=== PATIENT | male | born 1950 | race Caucasian/White ===

== ENCOUNTER 2020-05-28 11:52 | Observation (INO) | payer OTHER, BC ==
[2020-05-28] MEDS ORDERED: ALBUTEROL 2.5 MG/3 ML NEB SOL ONE (12:35)
[2020-05-28] MEDS ORDERED: METHYLPREDNISOLONE 125 MG INJ ONE (12:35)
[2020-05-28] MEDS ORDERED: IPRATROPIUM BROM 0.5MG/2.5ML ONE (12:35)
--- NOTE | 2020-05-28 12:43 | RAD REPORT ---
EXAM DESCRIPTION: RAD - Chest Single View - 05/28/2020 12:28 pm CLINICAL HISTORY: Congestion;Dyspnea Chest pain. COMPARISON: Chest Pa And Lat (2 Views) dated 04/29/2019; ABDOMEN 1 VIEW KUB dated 05/25/2015 FINDINGS: Portable technique limits examination quality. Extensive patchy opacities are present in both lungs, greatest in the right lower lobe, compatible wi th multifocal pneumonia pattern. Small bilateral pleural effusions. The heart is mildly enlarged in s ize. Sternotomy wires present.
[2020-05-28 12:52] LABS: Protime INR 1.33
[2020-05-28 12:57] LABS: Absolute Lymphocytes (CBC) 0.1 K/uL (0.7-4.9); Basophils % 0.2 % (0-1.3); Hematocrit 26.1 % (39.6-49.0); Lymphocytes % 0.8 % (15.3-44.8); MPV 8.9 fL (7.6-11.3); RBC Red Blood Cell Count 2.89 M/uL (4.33-5.43)
[2020-05-28 13:09] LABS: Albumin 2.7 g/dL (3.4-5.0); Bilirubin Direct 0.1 mg/dL (0-0.2); Bilirubin Total 0.4 mg/dL (0.2-1.0); Potassium 3.7 mmol/L (3.5-5.1); Protein, Total 7.2 g/dL (6.4-8.2); Troponin (Emerg Dept Use Only) 0.25 ng/mL (0.0-0.045)
[2020-05-28 13:26] LABS: Anisocytosis 1+; Blood Morphology Comment NOTED (NOT SEEN); Hypochromasia 2+; Platelet Estimate ADEQ; Platelets, Giant FEW
--- NOTE | 2020-05-28 13:35 | EDPHYS ---
Physician Documentation [facility] Name: Arya Jurado Age: 69 yrs Sex: Male : 1950 Arrival Date: 05/28/2020 Time: 11:55 Bed 3 Private MD: ED Physician Abimael Kaur HPI: 05/28 12:03 This 69 yrs old Male presents to ER via EMS with complaints of Shortness Of kdr Breath. 12:03 The patient has shortness of breath at rest, with light activity. Onset: The kdr symptoms/episode began/occurred gradually, 10 day(s) ago. Duration: The symptoms are continuous, and are steadily getting worse. The patient's shortness of breath is aggravated by coughing, exertion, light activity, talking. Associated signs and symptoms: The patient has no apparent associated signs or symptoms. Severity of symptoms: At their worst the symptoms were moderate just prior to arrival, today, in the emergency department the symptoms are unchanged. The patient has not experienced similar symptoms in the past. The patient has not recently seen a physician. The patient states that he had brown sputum which has now cleared. 12:08 Initial RA sat 66%. He is not on home oxygen but was to be evaluated by Dr. Josias cummings for need. Historical: - Allergies: 12:09 No Known Allergies; bp - Home Meds: 12:09 albuterol sulfate 90 mcg/actuation Inhl HFAA 2 puffs every 4-6 hours [Active]; bp clopidogrel 75 mg oral tab 1 tab once daily [Active]; atorvastatin 80 mg oral tab 1 tab once daily [Active]; Bystolic 10 mg oral tab 1 tab once daily [Active]; losartan 100 mg oral tab 1 tab once daily [Active]; levothyroxine 50 mcg tab 1 tab once daily [Active]; furosemide 20 mg Oral tab 1 tab 2 times per day [Active]; prednisone 10 mg Oral tab once daily [Active]; - PMHx: 12:09 Hypertension; High Cholesterol; Cancer; Myocardial infarction; bp - PSHx: 12:09 CABG; bp - Immunization history:: Adult Immunizations unknown. - Social history:: Smoking status: Patient reports the use of cigarette tobacco products, smokes one-half pack cigarettes per day. ROS: 12:03 Constitutional: Negative for fever, chills, and weight loss, Eyes: Negative for injury, kdr pain, redness, and discharge, ENT: Negative for injury, pain, and discharge, Neck: Negative for injury, pain, and swelling, Cardiovascular: Negative for chest pain, palpitations, and edema, Abdomen/GI: Negative for abdominal pain, nausea, vomiting, diarrhea, and constipation, Back: Negative for injury and pain, : Negative for injury, bleeding, discharge, and swelling, MS/Extremity: Negative for injury and deformity, Skin: Negative for injury, rash, and discoloration, Neuro: Negative for headache, weakness, numbness, tingling, and seizure activity. Psych: Negative for depression, anxiety, suicide ideation, homicidal ideation, and hallucinations, Allergy/Immunology: Negative for hives, rash, and allergies, Endocrine: Negative for neck swelling, polydipsia, polyuria, polyphagia, and marked weight changes, Hematologic/Lymphatic: Negative for swollen nodes, abnormal bleeding, and unusual bruising. 12:03 Respiratory: Positive for cough, with clear sputum, dyspnea on exertion, shortness of breath, wheezing, inspiratory, expiratory, Negative for hemoptysis, orthopnea, pleurisy. Exam: 12:03 Constitutional: This is a well developed, well nourished patient who is awake, alert, kdr and in no acute distress. Head/Face: Normocephalic, atraumatic. Eyes: Pupils equal round and reactive to light, extra-ocular motions intact. Lids and lashes normal. Conjunctiva and sclera are non-icteric and not injected. Cornea within normal limits. Periorbital areas with no swelling, redness, or edema. Neck: Trachea midline, no thyromegaly or masses palpated, and no cervical lymphadenopathy. Supple, full range of motion without nuchal rigidity, or vertebral point tenderness. No Meningismus. Chest/axilla: Normal chest wall appearance and motion. Nontender with no deformity. No lesions are appreciated. Cardiovascular: Regular rate and rhythm with a normal S1 and S2. No gallops, murmurs, or rubs. Normal PMI, no JVD. No pulse deficits. Abdomen/GI: Soft, non-tender, with normal bowel sounds. No distension or tympany. No guarding or rebound. No evidence of tenderness throughout. Back: No spinal tenderness. No costovertebral tenderness. Full range of motion. Skin: Warm, dry with poor turgor. Poor color with no rashes, scattered lesions, and no evidence of cellulitis. MS/ Extremity: Pulses equal, no cyanosis. Neurovascular intact. Full, normal range of motion. Neuro: Awake and alert, GCS 15, oriented to person, place, time, and situation. Cranial nerves II-XII grossly intact. Motor strength 5/5 in all extremities. Sensory grossly intact. Cerebellar exam normal. Normal gait. Psych: Awake, alert, with orientation to person, place and time. Behavior, mood, and affect are within normal limits. 12:03 Respiratory: mild respiratory distress is noted, Respirations: labored breathing, that is mild, Breath sounds: wheezing: inspiratory expiratory that is moderate, is scattered, is heard diffusely. 12:28 ECG was reviewed by the Attending Physician. kdr Vital Signs: 11:55 Pulse Ox 66% on R/A; bp 12:00 BP 183 / 100; Pulse 104; Resp 29; Temp 97.9; jl7 12:00 BP 183 / 100; Pulse 104; Resp 19; Pulse Ox 100% ; bp 12:51 BP 157 / 78; Pulse 99; Resp 20; Pulse Ox 100% on Nebulizer Mask; 5 13:31 Weight 51.71 kg; Height 5 ft. 6 in. (167.64 cm); 7 14:04 BP 161 / 81; Pulse 103; Resp 19; Pulse Ox 100% on 40% Venturi mask; 7 15:06 BP 171 / 87; Pulse 101; Resp 18; Pulse Ox 95% ; bp 16:00 BP 174 / 84; Pulse 100; Resp 24; Pulse Ox 96% ; bp 17:00 BP 162 / 95; Pulse 97; Resp 15; Pulse Ox 97% on 40% Venturi mask; jl7 18:09 BP 138 / 79; Pulse 95; Resp 22; Pulse Ox 94% on 40% Venturi mask; 7 19:00 BP 136 / 80; Pulse 91; Resp 19; Pulse Ox 94% on 40% Venturi mask; rv 20:07 BP 113 / 67; Pulse 89; Resp 18; Temp 98; Pulse Ox 95% on 40% Venturi mask; rv 13:31 Body Mass Index 18.40 (51.71 kg, 167.64 cm) [facility] MDM: 13:34 Patient medically screened. kdr 16:40 Data reviewed: vital signs, nurses notes, lab test result(s), EKG, radiologic studies. kdr Counseling: I had a detailed discussion with the patient and/or guardian regarding: the historical points, exam findings, and any diagnostic results supporting the discharge/admit diagnosis, lab results, radiology results, the need for further work-up and treatment in the hospital. 05/28 12:03 Order name: Amylase, Serum kdr 05/28 12:03 Order name: Basic Metabolic Panel kdr 05/28 12:03 Order name: Blood Culture Adult (2) kdr 05/28 12:03 Order name: CBC with Diff kdr 05/28 12:03 Order name: Ckmb kdr 05/28 12:03 Order name: CPK; Complete Time: 13:31 kdr 05/28 12:03 Order name: Lactate; Complete Time: 13:30 [facility] 05/28 12:03 Order name: LFT's; Complete Time: 13:30 kdr 05/28 12:03 Order name: Lipase; Complete Time: 13:30 [facility] 05/28 12:03 Order name: Procalcitonin; Complete Time: 13:30 [facility] 05/28 12:03 Order name: Protime (+inr); Complete Time: 13:30 kdr 05/28 12:03 Order name: Ptt, Activated; Complete Time: 13:31 kdr 05/28 12:03 Order name: Troponin (emerg Dept Use Only); Complete Time: 13:31 [facility] 05/28 12:03 Order name: Urine Microscopic Only kdr 05/28 12:03 Order name: Chest Single View XRAY; Complete Time: 13:31 [facility] 05/28 12:03 Order name: Amylase; Complete Time: 13:31 EDMS 05/28 12:03 Order name: Basic Metabolic Panel; Complete Time: 13:31 EDMS 05/28 12:03 Order name: Blood Culture EDMS 05/28 12:03 Order name: CBC with Automated Diff; Complete Time: 13:31 EDMS 05/28 12:03 Order name: CKMB Creatine Kinase MB; Complete Time: 13:31 EDMS 05/28 12:46 Order name: Glucose, Ancillary Testing; Complete Time: 13:31 EDMS 05/28 13:25 Order name: Manual Differential; Complete Time: 13:31 EDMS 05/28 14:08 Order name: Influenza Screen (A EDGA 05/28 14:11 Order name: SARS-COV-2 RT PCR EDGA 05/28 17:15 Order name: Lactate Sepsis 2 HR Follow-up [facility] 05/28 12:03 Order name: Accucheck; Complete Time: 12:17 kdr 05/28 12:03 Order name: Cardiac monitoring; Complete Time: 12:17 kdr 05/28 12:03 Order name: EKG - Nurse/Tech; Complete Time: 12:46 kdr 05/28 12:03 Order name: IV Saline Lock - Large Bore; Complete Time: 12:17 kdr 05/28 12:03 Order name: Labs collected and sent; Complete Time: 13:15 kdr 05/28 12:03 Order name: O2 Per Protocol; Complete Time: 12:17 kdr 05/28 12:03 Order name: O2 Sat Monitoring; Complete Time: 12:17 kdr EC:28 Rate is 101 beats/min. Rhythm is irregular, Sinus tachycardia with No ectopy, Right kdr bundle branch block. QRS [place] is Normal. OR interval is normal. QRS interval is normal. Clinical impression: NSR w/ Non-specific ST/T Changes and Sinus tachycardia. Administered Medications: 12:00 Drug: Albuterol - atroVENT (3:1) (2.5 mg - 0.5 mg) 3 ml Route: Nebulizer; bp 12:15 Follow up: Response: No adverse reaction jl7 12:30 Drug: SOLU-Medrol 125 mg Route: IVP; Site: right forearm; bp 14:03 Follow up: Response: No adverse reaction jl7 13:35 Drug: Rocephin - (cefTRIAXone) 1 grams Route: IVPB; Infused Over: 30 mins; Site: left jl7 forearm; 14:02 Follow up: Response: No adverse reaction; IV Status: Completed infusion jl7 13:35 Drug: NS 0.9% (30 ml/kg) 30 ml/kg Route: IV; Rate: bolus; Site: right antecubital; jl7 14:30 Follow up: Response: No adverse reaction; IV Status: Completed infusion; IV Intake: jl7 1551ml 13:55 Drug: vancoMYCIN 1 grams Route: IVPB; Infused Over: 2 hrs; Site: right antecubital; jl7 17:55 Follow up: Response: No adverse reaction; IV Status: Completed infusion jl7 Disposition: 05/28/20 13:34 Hospitalization ordered by Dave Lala for Inpatient Admission. Preliminary diagnosis are Pneumonia, unspecified organism, Sepsis, unspecified organism, Acute respiratory failure with hypoxia. - Bed requested for Telemetry/MedSurg (Inpatient). - Status is Inpatient Admission. rv - Condition is Fair. - Problem is new. - Symptoms have improved. Signatures: Dispatcher [employer] EDMS Abimael Kaur MD MD kdr Martinez, Eric em1 Sara Fung RN RN jl7 Huy Pham RN RN bp Ang Graff, MALISSA RN rv Corrections: (The following items were deleted from the chart) 13:28 12:03 CORONAVIRUS+MR.LAB.BRZ ordered. EDMS EDMS 14:09 13:33 Influenza Screen (A \T\ B)+BA.LAB.BRZ ordered. EDMS EDMS 14:10 13:33 CORONAVIRUS+MR.LAB.BRZ ordered. EDGA EDMS 18:38 13:34 Hospitalization Ordered by Dave Lala for Inpatient Admission. Preliminary em1 diagnosis is Pneumonia, unspecified organism; Sepsis, unspecified organism; Acute respiratory failure with hypoxia. Bed requested for Telemetry/MedSurg (Inpatient). Status is Inpatient Admission. Condition is Fair. Problem is new. Symptoms have improved. kdr 20:13 18:38 05/28/2020 13:34 Hospitalization Ordered by Dave Lala for Inpatient rv Admission. Preliminary diagnosis is Pneumonia, unspecified organism; Sepsis, unspecified organism; Acute respiratory failure with hypoxia. Bed requested for Telemetry/MedSurg (Inpatient). Status is Inpatient Admission. Condition is Fair. Problem is new. Symptoms have improved. em1
--- NOTE | 2020-05-28 13:35 | ER ---
Nurse's Notes [facility] Name: Arya Jurado Age: 69 yrs Sex: Male : 1950 Arrival Date: 05/28/2020 Time: 11:55 Bed 3 Private MD: Diagnosis: Pneumonia, unspecified organism;Sepsis, unspecified organism;Acute respiratory failure with hypoxia Presentation: 05/28 11:55 Chief complaint: EMS states: HYPOXIA x1 WK. Coronavirus screen: cough unrelated to bp allergies, difficulty breathing, shortness of breath, Client presents with at least one sign or symptom that may indicate coronavirus-19. Standard/surgical mask placed on the client. Provider contacted for isolation considerations. Ebola Screen: No symptoms or risks identified at this time. Initial Sepsis Screen: Does the patient meet any 2 criteria? HR > 90 bpm. Does the patient have a suspected source of infection? Yes: Productive cough/pneumonia. Risk Assessment: Do you want to hurt yourself or someone else? Patient reports no desire to harm self or others. Onset of symptoms is unknown. Care prior to arrival: IV initiated. 20 GA, in the right antecubital area, Glucose check: 215 Oxygen administered. via a non-rebreather mask. 11:55 Method Of Arrival: EMS[facility] bp 11:55 Acuity: COLT 2 bp Triage Assessment: 12:09 General: Appears distressed, uncomfortable, ill, slender, Behavior is cooperative, bp appropriate for age, anxious. Pain: Denies pain. EENT: No deficits noted. Neuro: No deficits noted. Cardiovascular: Rhythm is sinus rhythm. Respiratory: Reports shortness of breath cough that is Onset: The symptoms/episode began/occurred 1 WEEK AGO, the patient has severe shortness of breath. GI: No signs and/or symptoms were reported involving the gastrointestinal system. : No signs and/or symptoms were reported regarding the genitourinary system. Derm: No deficits noted. Musculoskeletal: No deficits noted. Historical: - Allergies: 12:09 No Known Allergies; bp - Home Meds: 12:09 albuterol sulfate 90 mcg/actuation Inhl HFAA 2 puffs every 4-6 hours [Active]; bp clopidogrel 75 mg oral tab 1 tab once daily [Active]; atorvastatin 80 mg oral tab 1 tab once daily [Active]; Bystolic 10 mg oral tab 1 tab once daily [Active]; losartan 100 mg oral tab 1 tab once daily [Active]; levothyroxine 50 mcg tab 1 tab once daily [Active]; furosemide 20 mg Oral tab 1 tab 2 times per day [Active]; prednisone 10 mg Oral tab once daily [Active]; - PMHx: 12:09 Hypertension; High Cholesterol; Cancer; Myocardial infarction; bp - PSHx: 12:09 CABG; bp - Immunization history:: Adult Immunizations unknown. - Social history:: Smoking status: Patient reports the use of cigarette tobacco products, smokes one-half pack cigarettes per day. Screenin:00 Abuse screen: Denies threats or abuse. Denies injuries from another. Nutritional bp screening: No deficits noted. Tuberculosis screening: No symptoms or risk factors identified. Fall Risk None identified. Assessment: 11:00 General: SEE TRIAGE NOTE. bp 14:04 Reassessment: Pt placed on Venturi mask per ERD. jl7 15:05 Reassessment: PT ON 30% ON VENTI MASK. ADMIT IN PROCESS. Cardiovascular: Rhythm is bp sinus rhythm. Respiratory: Airway is patent Respiratory effort is even, unlabored, Breath sounds are coarse bilaterally. 16:17 Reassessment: Patient appears in no apparent distress at this time. Patient and/or bp family updated on plan of care and expected duration. Pain level reassessed. Patient is alert, oriented x 3, equal unlabored respirations, skin warm/dry/pink. ADMIT IN PROCESS. PT SLEEPING. 17:30 Reassessment: Patient appears in no apparent distress at this time. No changes from jl7 previously documented assessment. Patient and/or family updated on plan of care and expected duration. Pain level reassessed. Patient is alert, oriented x 3, equal unlabored respirations, skin warm/dry/pink. 18:30 Reassessment: Patient appears in no apparent distress at this time. Patient and/or jl7 family updated on plan of care and expected duration. Pain level reassessed. Patient is alert, oriented x 3, equal unlabored respirations, skin warm/dry/pink. 19:15 General: Appears in no apparent distress. comfortable, Behavior is calm, cooperative. rr5 Neuro: Level of Consciousness is awake, alert, Oriented to person, place, time. Cardiovascular: Capillary refill < 3 seconds Patient's skin is warm and dry. 19:15 Pain: Denies pain. Respiratory: Reports shortness of breath Airway is patent rr5 Respiratory effort is even, unlabored, Respiratory pattern is regular. GI: No signs and/or symptoms were reported involving the gastrointestinal system. : No signs and/or symptoms were reported regarding the genitourinary system. EENT: No signs and/or symptoms were reported regarding the EENT system. Derm: Skin is intact, is healthy with good turgor, Skin temperature is warm. Musculoskeletal: Capillary refill < 3 seconds. Vital Signs: 11:55 Pulse Ox 66% on R/A; bp 12:00 BP 183 / 100; Pulse 104; Resp 29; Temp 97.9; jl7 12:00 BP 183 / 100; Pulse 104; Resp 19; Pulse Ox 100% ; bp 12:51 BP 157 / 78; Pulse 99; Resp 20; Pulse Ox 100% on Nebulizer Mask; mh5 13:31 Weight 51.71 kg; Height 5 ft. 6 in. (167.64 cm); jl7 14:04 BP 161 / 81; Pulse 103; Resp 19; Pulse Ox 100% on 40% Venturi mask; jl7 15:06 BP 171 / 87; Pulse 101; Resp 18; Pulse Ox 95% ; bp 16:00 BP 174 / 84; Pulse 100; Resp 24; Pulse Ox 96% ; bp 17:00 BP 162 / 95; Pulse 97; Resp 15; Pulse Ox 97% on 40% Venturi mask; jl7 18:09 BP 138 / 79; Pulse 95; Resp 22; Pulse Ox 94% on 40% Venturi mask; jl7 19:00 BP 136 / 80; Pulse 91; Resp 19; Pulse Ox 94% on 40% Venturi mask; rv 20:07 BP 113 / 67; Pulse 89; Resp 18; Temp 98; Pulse Ox 95% on 40% Venturi mask; rv 13:31 Body Mass Index 18.40 (51.71 kg, 167.64 cm) jl7 ED Course: 11:00 Patient has correct armband on for positive identification. Bed in low position. Call bp light in reach. Side rails up X2. 11:55 Patient arrived in ED. bp 11:58 Triage completed. bp 12:00 Abimael Kaur MD is Attending Physician. kdr 12:00 Initial lab(s) drawn, by me, sent to lab. First set of blood cultures drawn by me. jl7 12:06 Sara Fung, MALISSA is Primary Nurse. jl7 12:09 Arm band placed on. bp 12:14 Maintain EMS IV. Dressing intact. Good blood return noted. Site clean \T\ dry. Gauge \T\ bp site: 20 DARIUS R FA. 12:27 Chest Single View XRAY In Process Unspecified. EDMS 12:28 Inserted saline lock: 20 gauge in left forearm, using aseptic technique. Blood jl7 collected. 12:32 Second set of blood cultures drawn by me. jl7 13:33 Dave Lala is Hospitalizing Provider. kdr 15:19 Amylase, Serum Sent. jl7 15:19 Basic Metabolic Panel Sent. jl7 15:19 Blood Culture Adult (2) Sent. jl7 15:19 CBC with Diff Sent. jl7 15:19 Ckmb Sent. jl7 20:06 No provider procedures requiring assistance completed. Patient admitted, IV remains in rr5 place. intact, No redness/swelling at site. Administered Medications: 12:00 Drug: Albuterol - atroVENT (3:1) (2.5 mg - 0.5 mg) 3 ml Route: Nebulizer; bp 12:15 Follow up: Response: No adverse reaction jl7 12:30 Drug: SOLU-Medrol 125 mg Route: IVP; Site: right forearm; bp 14:03 Follow up: Response: No adverse reaction jl7 13:35 Drug: Rocephin - (cefTRIAXone) 1 grams Route: IVPB; Infused Over: 30 mins; Site: left jl7 forearm; 14:02 Follow up: Response: No adverse reaction; IV Status: Completed infusion jl7 13:35 Drug: NS 0.9% (30 ml/kg) 30 ml/kg Route: IV; Rate: bolus; Site: right antecubital; jl7 14:30 Follow up: Response: No adverse reaction; IV Status: Completed infusion; IV Intake: jl7 1551ml 13:55 Drug: vancoMYCIN 1 grams Route: IVPB; Infused Over: 2 hrs; Site: right antecubital; jl7 17:55 Follow up: Response: No adverse reaction; IV Status: Completed infusion jl7 Intake: 14:30 IV: 1551ml; Total: 1551ml. jl7 Outcome: 13:34 Decision to Hospitalize by Provider. kdr 20:06 Condition: good rv 20:06 Admitted to Med/surg accompanied by nurse, room 232, with oxygen, with chart, Report rr5 called to vironice 20:06 Condition: stable 20:06 Instructed on the need for admit. 20:13 Patient left the ED. rv Signatures: Dispatcher [employer] EDMS Abimael Kaur MD MD kdr Martinez, lAva Sara Bean RN RN jl7 Huy Pham RN RN Ang Graff, RN RN rv Philip Yip, RN RN rr5
[2020-05-28] MEDS ORDERED: CEFTRIAXONE/SWI 1gm 1 GM/10 ML SYR ONE (13:50)
[2020-05-28] MEDS ORDERED: NA CHLORIDE 0.9% 1,000 ML ONE (13:50)
[2020-05-28] MEDS ORDERED: NA CHLORIDE 0.9% 500 ML ONE (13:50)
[2020-05-28] MEDS ORDERED: VANCOMYCIN/NS 1 gm 1 GM/250 ML BAG IVPB ONE (14:00)
--- NOTE | 2020-05-28 15:29 | P.HP ---
Certification for Inpatient Patient admitted to: Inpatient With expected LOS: >2 Midnights Practitioner: I am a practitioner with admitting privileges, knowledge of patient current condition, hospital course, and medical plan of care. Services: Services provided to patient in accordance with Admission requirements found in Title 42 Section 412.3 of the Code of Federal Regulations Patient History Date of Service: 05/28/20 Reason for admission: Cough and shortness of breath History of Present Illness: 69-year-old gentleman with a history of laryngeal cancer, history of hyperte nsion and CABG presented to the emergency department with a complaint of progressive shortness of breath and cough which has been present for about 10 days. Patient reports cough productive of brownish sputum. Patient was afebrile in the ED. His oxygen saturation was 66% on room air. Patient was placed on non-rebreather mask and then transition to Ventimask. Chest x-ray done in the ED demonstrated extensive bilateral patchy infiltrates. Patient started on IV antibiotics and admitted for further management. - Past Medical/Surgical History -: Coronary artery disease -: Hypertension -: History of laryngeal cancer -: Status post radiation to head and neck area - Family History Mother -: Heart disease - Social History Smoking Status: Former smoker Alcohol use: No CD- Drugs: No Place of Residence: Home Review of Systems Other: Except as documented, all other systems reviewed and negative. Physical Examination - Physical Exam General: Alert, In no apparent distress, Oriented x3 HEENT: Atraumatic, PERRLA, Mucous membr. moist/pink, EOMI, Sclerae nonicteric Neck: Supple, JVD not distended Respiratory: Crackles/rales (Bilateral) Cardiovascular: Regular rate/rhythm, Normal S1 S2, Edema (1+ bilateral lower extremity pitting edema) Gastrointestinal: Normal bowel sounds, Soft and benign, Non-distended, No tenderness Neurological: Normal strength at 5/5 x4 extr, Cranial nerves 3-12 intact - Studies Laboratory Data (last 24 hrs) 05/28/20 12:33: PT 15.3 H, INR 1.33, APTT 21.7 L 05/28/20 12:33: WBC 16.90 H, Hgb 7.8 L*, Hct 26.1 L, Plt Count 391 05/28/20 12:33: Sodium 141, Potassium 3.7, BUN 27 H, Creatinine 1.28, Glucose 137 H, Total Bilirubin 0.4, AST 36, ALT 45, Alkaline Phosphatase 89, Amylase 27, Lipase 50 L Microbiology Data (last 24 hrs): 05/28/20 12:37 Nasopharnyx Influenza Type A Antigen Screen - Final 05/28/20 12:37 Nasopharnyx Influenza Type B Antigen Screen - Final Assessment and Plan - Problems (Diagnosis) (1) Acute respiratory failure with hypoxia Current Visit: Yes Status: Acute (2) Bilateral pneumonia Current Visit: Yes Status: Acute (3) History of laryngeal cancer Current Visit: Yes Status: Acute (4) Coronary artery disease Current Visit: Yes Status: Acute (5) Peripheral edema Current Visit: Yes Status: Acute - Plan Admit to the medical floor. Titrate oxygen Start IV Zosyn and Levaquin Follow blood cultures Obtain sputum culture Swallow evaluation given history of laryngeal cancer. IV Lasix p.r.n.. Continue home medications for CAD. - Advance Directives Does patient have a Living Will: Yes Does patient have a Durable POA for Healthcare: Yes
[2020-05-28] MEDS: ALBUTEROL 2.5 MG/3 ML NEB SOL NEB SCH (20:38)
[2020-05-28] MEDS ORDERED: ACETAMINOPHEN 500 MG TAB PO PRN (20:38)
[2020-05-28] MEDS: IPRATROPIUM BROM 0.5MG/2.5ML NEB SCH (20:38)
[2020-05-28] MEDS ORDERED: NA CHLORIDE 0.9% 1,000 ML IV SCH (20:38)
[2020-05-28] MEDS ORDERED: ONDANSETRON 4 MG/2 ML VIAL IV PRN (20:38)
[2020-05-28] MEDS ORDERED: PIPER/TAZO/NS 3.375gm 3.375 GM/100 ML BAG IVPB ONE (21:00)
[2020-05-28] MEDS ORDERED: Levofloxacin 750mg IV 750 MG/150 ML BAG IV SCH (22:00)
[2020-05-28] MEDS ORDERED: PIPER/TAZO/NS 3.375gm 6.750 GM/200 ML BAG ONE (22:03)
[2020-05-29] MEDS ORDERED: PIPER/TAZO/NS 3.375gm 3.375 GM/100 ML BAG IVPB SCH ×2 (01:00→09:00)
[2020-05-29] MEDS: IPRATROPIUM BROM 0.5MG/2.5ML NEB SCH ×2 (01:15→04:00)
[2020-05-29] MEDS: ALBUTEROL 2.5 MG/3 ML NEB SOL NEB SCH (01:15)
[2020-05-29 01:50] VITALS: O2SAT 95
[2020-05-29 02:16] VITALS: BMI 18.3
[2020-05-29 03:00] VITALS: BP 122/66; TEMP 97.6
[2020-05-29 03:25] LABS: Urine Appearance CLEAR; Urine Bilirubin NEGATIVE (NEG); Urine Blood NEGATIVE (NEG); Urine Color YELLOW; Urine Glucose NEGATIVE (NEG); Urine Protein NEGATIVE (NEG); Urine Urobilinogen 0.2 mg/dL (0.2-1.0)
[2020-05-29 03:27] LABS: Urine Microscopic Reflex NO UMIC
[2020-05-29] MEDS ORDERED: ENOXAPARIN 40 MG/0.4 ML SQ SCH (09:00)
[2020-05-29] MEDS ORDERED: CALCIUM GLUCONATE IV ONE (15:37)
[2020-05-29] MEDS ORDERED: EPINEPHrine 1 MG/10 ML SYR IV ONE (15:37)
[2020-05-29] MEDS ORDERED: NS IV ONE (15:37)
--- NOTE | 2020-05-31 08:00 | EKG ---
Test Date: 2020-05-28 Test Time: 12:24:34 [employer] Worker: BP MEASUREMENT RESULTS: Intervals: Rate: 101 NH: 136 QRSD: 110 QT: 380 QTc: 492 [place]: P: 54 NH: 136 QRS: 95 T: 3 INTERPRETIVE STATEMENTS: Sinus tachycardia Possible Left atrial enlargement Rightward axis Incomplete right bundle branch block ST & Marked T wave abnormality, consider anterolateral ischemia Abnormal ECG No previous ECG available for comparison Electronically Signed On 05-31-20 07:54:06 [employer] by Gautam Helms
--- NOTE | 2020-05-31 13:56 | P.DS ---
Admission Date: 05/28/20 Discharge Date: 05/29/20 Disposition: Reason for Admission: Cough and shortness of breath - Problems (1) Acute respiratory failure with hypoxia Status: Acute (2) Bilateral pneumonia Status: Acute (3) History of laryngeal cancer Status: Acute (4) Coronary artery disease Status: Acute (5) Peripheral edema Status: Acute Brief History of Present Illness: 69-year-old gentleman with a history of laryngeal cancer, history of hypertension and CABG presented to the emergency department with a complaint of progressive shortness of breath and cough which has been present for about 10 days. Patient reports cough productive of brownish sputum. Patient was afebrile in the ED. His oxygen saturation was 66% on room air. Patient was placed on non-rebreather mask and then transition to Ventimask. Chest x-ray done in the ED demonstrated extensive bilateral patchy infiltrates. EKG showed no ischemic changes. Patient started on IV antibiotics and admitted for further management. Hospital Course: Patient admitted to the medical floor and started on aggressive antibiotic therapy. Patient noted to have anemia with hemoglobin of 7.8. Blood cultures drawn. Patient is reported to have suddenly developed PEA overnight. ACLS was carried out, patient was intubated during the process. There was no ROSC. Patient pronounced on 05/29/2020 at 0435 hours. Vital Signs/Physical Exam: Temp Pulse Resp BP Pulse Ox 97.6 F 89 20 122/66 91 05/29/20 00:00 05/29/20 00:00 05/29/20 00:00 05/29/20 00:00 05/29/20 00:00 Laboratory Data at Discharge: WBC Cancelled 05/29/20 05:00 Hgb Cancelled 05/29/20 05:00 Hct Cancelled 05/29/20 05:00 Plt Count Cancelled 05/29/20 05:00 PT Cancelled 05/29/20 05:00 INR Cancelled 05/29/20 05:00 APTT 21.7 SECONDS (24.3-36.9) L 05/28/20 12:33 Sodium Cancelled 05/29/20 05:00 Potassium Cancelled 05/29/20 05:00 BUN Cancelled 05/29/20 05:00 Creatinine Cancelled 05/29/20 05:00 Glucose Cancelled 05/29/20 05:00 Phosphorus Cancelled 05/29/20 05:00 Magnesium Cancelled 05/29/20 05:00 Total Bilirubin 0.4 mg/dL (0.2-1.0) 05/28/20 12:33 AST 36 U/L (15-37) 05/28/20 12:33 ALT 45 U/L (12-78) 05/28/20 12:33 Alkaline Phosphatase 89 U/L (45-117) 05/28/20 12:33 Troponin I Cancelled 05/29/20 04:16 Triglycerides Cancelled 05/29/20 05:00 Cholesterol Cancelled 05/29/20 05:00 HDL Cholesterol Cancelled 05/29/20 05:00 Cholesterol/HDL Ratio Cancelled 05/29/20 05:00 Amylase 27 U/L (25-115) 05/28/20 12:33 Lipase 50 U/L (73-393) L 05/28/20 12:33 Home Medications: Albuterol Sulfate [Proair Respiclick] 90 mcg PO PRN PRN 05/29/20 Aspirin [Aspirin EC 81 MG] 81 mg PO SEECOM 05/29/20 Atorvastatin Calcium [Lipitor] 80 mg PO BEDTIME 05/29/20 Cholecalciferol (Vitamin D3) [Vitamin D3] 5,000 intlu PO DAILY 05/29/20 Clopidogrel Bisulfate [Plavix] 75 mg PO DAILY 05/29/20 Cyanocobalamin (Vitamin B-12) [Vitamin B12] 5,000 mcg PO DAILY 05/29/20 Doxycycline Hyclate 100 mg PO BID 05/29/20 Fluticasone Propion/Salmeterol [Wixela 500-50 Inhub] 500 mg PO DAILY 05/29/20 Furosemide 20 mg PO BID 05/29/20 Levothyroxine Sodium [Levothyroxine] 50 mcg PO DAILY 05/29/20 Losartan Potassium 100 mg PO DAILY 05/29/20 Multivitamin with Iron [Multivitamins with Iron] 1 mg PO DAILY 05/29/20 Nebivolol HCl [Bystolic] 10 mg PO BEDTIME 05/29/20 Omeprazole Magnesium [Prilosec Otc] 20 mg PO DAILY 05/29/20 Vitamin B Complex [B Complex] 1 mg PO DAILY 05/29/20 Zinc 50 mg PO DAILY 05/29/20 predniSONE [Deltasone*] 10 mg PO DAILY 05/29/20 Followup: NONE,NONE [Primary Care Provider] -
== END 2020-05-29 08:56 | disposition expired ==
LOC: ER 11:52 → INTOOBSV 15:22 → ERHOLD 15:22 → 2ND 19:55
PROVIDERS: ADMIT Internal Medicine; ATTEND Internal Medicine
DX: J18.9 Pneumonia, unspecified organism (principal); J96.01 Acute respiratory failure with hypoxia; I10 Essential (primary) hypertension; I46.9 Cardiac arrest, cause unspecified; D64.9 Anemia, unspecified; Z20.822 Contact with and (suspected) exposure to COVID-19; Z85.21 Personal history of malignant neoplasm of larynx; I25.10 Atherosclerotic heart disease of native coronary artery without angina pectoris; Z92.3 Personal history of irradiation; Z95.1 Presence of aortocoronary bypass graft; Z87.891 Personal history of nicotine dependence; R60.9 Edema, unspecified; E78.00 Pure hypercholesterolemia, unspecified; I25.2 Old myocardial infarction; R94.31 Abnormal electrocardiogram [ECG] [EKG]
CPT/HCPCS: 93005; 87040 ×2; 85025; 80048; 36415; 82150; 82550; 85610; 82947 ×2; 80076; 83605 ×4; 85730; 81003; 84484; 82553; 83690; 84145; 87804 ×2; 71045; 94760; 99285; U0003; J2543; J0171; J0610; J3370; J0696; J7040; J7030 ×2; J2930; G0378